=== PATIENT | female | born 1965 | race Caucasian/White ===

== ENCOUNTER 2017-10-11 12:18 | Emergency (ER) | payer OTHER, SELFPAY ==
[2017-10-11 12:19] VITALS: BP 163/72; PULSE 88; RESP 15; TEMP 37.1; BMI 37.0
--- NOTE | 2017-10-11 12:35 | ED.VISSUMM ---
- ER Visit Summary Date of Service: 10/11/17 Chief Complaint: Presents with injury to right and left knee. She is concerned she dislocated her left patella. History of Present Illness: The patient is a 52 F history of prior patellar dislocation left presents because of injury to left and right knee after slipping on black ice . She was entering place of employment. She did not land directly on her knees. She localizes the pain over the right and left infrapatellar tendon. She was able to ambulate to the emergency department. She denies any paresthesia, anesthesia or motor weakness. Physical Examination: Lungs are noted and are marked for an elevated blood pressure. BMI is 37.1. There is no swelling of the right or left knee. There is no pain the patient over the patella and there is no effusion. She is able to extend 180? and flex to less than 90? bilaterally. There is no laxity with varus valgus stress testing. She complained of pain that she localizes inferior to the patella. Amalia's test is negative. Modified Miah's test is negative. Pain to palpation of fullness in the popliteal fossa. Strength is 5/5 with regards to extension and flexion of the knee. Test Results: Since no history of direct trauma and no point tenderness or tenderness over the patella or joint line neurologic imaging is not indicated my professional opinion. Emergency Department Course and Treatment: Informed she strained her patella tendon since that is where she has discomfort. She was informed that x-rays are not indicated. Furthermore, she was informed that she did not dislocate her patella because classically a person who does that there are knee is in flexion and in significant pain until the patella is reduced. Treatment Plan: Took NSAID prior to arrival. She was discharged to follow-up at [facility] with appropriate home-going instructions Disposition: Discharge once seen by the [facility] personnel Impression: 1. Infrapatellar ligament strain right and left secondary to fall This note was generated with [employer] dictation software. It may contain incorrect words, spelling, and punctuation that were not noted in review of the chart prior to signing ED Disposition - Plan for ED Patient: Disposition: Home or Assisted Living Chief Complaint: Lower Extremity Injury Instructions: ED Sprain Knee Referrals: [facility] [GROUP OF PHYSICIANS] - 2 Days
--- NOTE | 2017-10-11 12:41 | ED.DCSUM_ITS ---
- ER Visit Summary Date of Service: 10/11/17 Chief Complaint: Presents with injury to right and left knee. She is concerned she dislocated her left patella. History of Present Illness: The patient is a 52 F history of prior patellar dislocation left presents because of injury to left and right knee after slipping on black ice . She was entering place of employment. She did not land directly on her knees. She localizes the pain over the right and left infrapatellar tendon. She was able to ambulate to the emergency department. She denies any paresthesia, anesthesia or motor weakness. Physical Examination: Lungs are noted and are marked for an elevated blood pressure. BMI is 37.1. There is no swelling of the right or left knee. There is no pain the patient over the patella and there is no effusion. She is able to extend 180? and flex to less than 90? bilaterally. There is no laxity with varus valgus stress testing. She complained of pain that she localizes inferior to the patella. Amalia's test is negative. Modified Miah's test is negative. Pain to palpation of fullness in the popliteal fossa. Strength is 5/5 with regards to extension and flexion of the knee. Test Results: Since no history of direct trauma and no point tenderness or tenderness over the patella or joint line neurologic imaging is not indicated my professional opinion. Emergency Department Course and Treatment: Informed she strained her patella tendon since that is where she has discomfort. She was informed that x-rays are not indicated. Furthermore, she was informed that she did not dislocate her patella because classically a person who does that there are knee is in flexion and in significant pain until the patella is reduced. Treatment Plan: Took NSAID prior to arrival. She was discharged to follow-up at [facility] with appropriate home-going instructions Disposition: Discharge once seen by the [facility] personnel Impression: 1. Infrapatellar ligament strain right and left secondary to fall This note was generated with [employer] dictation software. It may contain incorrect words, spelling, and punctuation that were not noted in review of the chart prior to signing ED Disposition - Plan for ED Patient: Disposition: Home or Assisted Living Chief Complaint: Lower Extremity Injury Instructions: ED Sprain Knee Referrals: [facility] [GROUP OF PHYSICIANS] - 2 Days
[2017-10-11 12:57] VITALS: RESP 16
--- NOTE | 2017-10-11 12:57 | ED.RN ---
REVIEWED D/C INSTRUCTIONS, FOLLOW UP CARE, AND S/S THAT WOULD WARRANT A RETURN TO THE ED WITH PT. PT VERBALIZED AN UNDERSTANDING AND DENIES FURTHER QUESTIONS FOR THIS RN. PT SKIN P/W/D, RESP EVEN AND UNLABORED, PT A&O X 3, NO DISTRESS NOTED.
== END 2017-10-11 13:26 | disposition home or self-care (01) ==
PROVIDERS: Emergency Provider Emergency Medicine; Family Provider Internal Medicine; PCP Internal Medicine
DX: S83.8X1A Sprain of other specified parts of right knee, initial encounter (principal); S83.8X2A Sprain of other specified parts of left knee, initial encounter; W00.0XXA Fall on same level due to ice and snow, initial encounter; Y93.9 Activity, unspecified; Y92.9 Unspecified place or not applicable; Y99.9 Unspecified external cause status; R03.0 Elevated blood-pressure reading, without diagnosis of hypertension; E66.9 Obesity, unspecified; Z68.37 Body mass index [BMI] 37.0-37.9, adult
CPT/HCPCS: 99283